=== PATIENT | male | born 1965 | race Caucasian/White ===

== ENCOUNTER 2016-07-23 20:55 | Emergency (ER) | payer OTHER | END 2016-07-23 22:35 | disposition home or self-care (01) | LOC: ER1 20:55 | DX: S46.911A Strain of unspecified muscle, fascia and tendon at shoulder and upper arm level, right arm, initial encounter (principal); Z88.1 Allergy status to other antibiotic agents; Z88.6 Allergy status to analgesic agent; W01.0XXA Fall on same level from slipping, tripping and stumbling without subsequent striking against object, initial encounter; Y92.009 Unspecified place in unspecified non-institutional (private) residence as the place of occurrence of the external cause | CPT/HCPCS: 73030; 73060; 73080; 99283 ==

== ENCOUNTER 2016-10-05 17:22 | Emergency (ER) | payer OTHER | END 2016-10-05 19:40 | disposition home or self-care (01) | LOC: ER1 17:22 | DX: S93.621A Sprain of tarsometatarsal ligament of right foot, initial encounter (principal); Z88.6 Allergy status to analgesic agent; W22.01XA Walked into wall, initial encounter; Y93.89 Activity, other specified; Y92.009 Unspecified place in unspecified non-institutional (private) residence as the place of occurrence of the external cause | CPT/HCPCS: 73630; 99283 ==

== ENCOUNTER → 2016-10-21 | Outpatient (CLI) | payer OTHER ==
[~2016-10-21] MED LIST: LITHIUM CARBON600 MG PO; NORCO 10-325 T1 EACH PO; PROTONIX40 MG PO; PROZAC40 MG PO; SYNTHROID25 MCG PO; TRAMADOL HCL50 MG PO; TRAZODONE HCL150 MG PO; ZANTAC150 MG PO
[2016-10-21 15:10] LABS: BUN/CREATININE RATIO 20 (0-10)
== END ==
LOC: LAB 13:16
PROVIDERS: Family Medicine
DX: N52.9 Male erectile dysfunction, unspecified (principal); E03.9 Hypothyroidism, unspecified; R39.12 Poor urinary stream
CPT/HCPCS: 36415; 80048; 80061; 80076; 84153; 84403; 84443

== ENCOUNTER 2017-01-20 22:08 | Observation (INO) | payer OTHER ==
[~2017-01-20] VITALS: Ht 162.6 cm; Wt 87.5 kg
[2017-01-20 23:38] LABS: RED BLOOD COUNT 4.55 M/UL (4.20-5.50); WHITE BLOOD COUNT 9.4 K/UL (4.5-11.0)
[2017-01-20 23:53] LABS: BUN/CREATININE RATIO 17 (0-10)
[2017-01-21] MEDS ORDERED: SYNTHROID25 MCG PO (08:10)
[2017-01-21] MEDS ORDERED: LITHIUM CARBON600 MG PO (08:12)
[2017-01-21] MEDS ORDERED: ZANTAC150 MG PO (08:18)
[2017-01-21] MEDS ORDERED: PROTONIX40 MG PO (08:18)
[2017-01-21] MEDS ORDERED: TRAZODONE HCL150 MG PO (08:19)
[2017-01-21] MEDS ORDERED: TRAMADOL HCL50 MG PO (08:20)
[2017-01-21] MEDS ORDERED: PROZAC40 MG PO (08:20)
[2017-01-22] MEDS ORDERED: NORCO 10-325 T1 EACH PO (11:59)
== END 2017-01-22 14:22 | disposition home or self-care (01) ==
LOC: ER1 22:08 → M/S 01-21 03:15 → ZEROF 01-21 03:15 → M/S 01-21 06:28
PROVIDERS: Emergency Medicine; ADMIT Surgery
PROC: 0WUF4JZ Supplement Abdominal Wall with Synthetic Substitute, Percutaneous Endoscopic Approach (ICD-10-PCS; principal; 2017-01-21 13:15)
DX: K42.0 Umbilical hernia with obstruction, without gangrene (principal); G47.30 Sleep apnea, unspecified; K21.9 Gastro-esophageal reflux disease without esophagitis; Z79.899 Other long term (current) drug therapy; Z88.8 Allergy status to other drugs, medicaments and biological substances
CPT/HCPCS: 80053; 83605; 85025; 96375; G0378; J0690; J1100; J1200; J2250; J2270; J2405; J2710; J3010; J7050; J7120; Q9962

== ENCOUNTER 2020-07-01 10:09 | Emergency (ER) | payer OTHER ==
[~2020-07-01 10:09] MED LIST changes: +FLEXERIL 10 MG10 MG PO
[2020-07-01 13:11] LABS: HEMOGLOBIN 15.6 gm/dl (14.0-17.5); RED BLOOD COUNT 5.03 M/UL (4.20-5.50)
[2020-07-01 13:36] LABS: BUN/CREATININE RATIO 16 (0-10)
[2020-07-01 13:41] LABS: WHITE BLOOD COUNT 5.6 K/UL (4.5-11.0)
[2020-07-01] MEDS ORDERED: ZITHROMAX250 MG PO (17:08)
[2020-07-01] MEDS ORDERED: DECADRON6 MG PO (17:08)
== END 2020-07-01 18:55 | disposition home or self-care (01) ==
LOC: ER1 10:09
PROVIDERS: Physician Assistant
DX: U07.1 COVID-19 (principal); J12.82 Pneumonia due to coronavirus disease 2019; E11.9 Type 2 diabetes mellitus without complications; Z79.899 Other long term (current) drug therapy; Z88.6 Allergy status to analgesic agent
CPT/HCPCS: 0240U; 36415; 36600; 71045; 80048; 82803; 85025; 85379; 96365; 96375; 99284; J0696; J1100; M0239; Q9967

== ENCOUNTER → 2021-01-09 | Outpatient (CLI) | payer OTHER ==
[~2021-01-09] MED LIST changes: +DECADRON6 MG PO; +ZITHROMAX250 MG PO
== END ==
LOC: KOH-I 11:15
DX: M25.562 Pain in left knee (principal); M17.12 Unilateral primary osteoarthritis, left knee; S83.242A Other tear of medial meniscus, current injury, left knee, initial encounter
CPT/HCPCS: 73721

== ENCOUNTER → 2021-04-10 | Day surgery (SDC) | payer OTHER ==
[~2021-04-10] MED LIST changes: +CLARITIN10 M2 PO; +CRESTOR10 MG PO; +GLUCOPHAGE 500500 MG PO; +HYDROCODON-ACE1 EAC2 PO; -SYNTHROID25 MCG PO; +SYNTHROID75 MCG PO; +VIIBRYD20 MG PO; +XYZAL5 MG PO
== END | disposition home or self-care (01) ==
LOC: OR 07:50
DX: S83.232A Complex tear of medial meniscus, current injury, left knee, initial encounter (principal); M17.12 Unilateral primary osteoarthritis, left knee; M94.262 Chondromalacia, left knee; E78.5 Hyperlipidemia, unspecified; K21.9 Gastro-esophageal reflux disease without esophagitis; E07.9 Disorder of thyroid, unspecified; M19.90 Unspecified osteoarthritis, unspecified site; E11.9 Type 2 diabetes mellitus without complications; Z88.6 Allergy status to analgesic agent; Z88.8 Allergy status to other drugs, medicaments and biological substances; Z79.84 Long term (current) use of oral hypoglycemic drugs; Z79.899 Other long term (current) drug therapy; Z20.822 Contact with and (suspected) exposure to COVID-19; X58.XXXA Exposure to other specified factors, initial encounter
CPT/HCPCS: 82962; J0171; J0690; J2250; J2704; J3010; J7030; J7120

== ENCOUNTER → 2021-10-15 | Outpatient (CLI) | payer OTHER | LOC: KOH-I 11:40 | DX: M47.26 Other spondylosis with radiculopathy, lumbar region (principal); M51.16 Intervertebral disc disorders with radiculopathy, lumbar region; M25.562 Pain in left knee; M25.572 Pain in left ankle and joints of left foot; M17.12 Unilateral primary osteoarthritis, left knee | CPT/HCPCS: 72100; 73562; 73610 ==